=== PATIENT | female | born 1980 | race Caucasian/White ===

== ENCOUNTER → 2021-08-05 | Outpatient (CLI) | payer OTHER | END | disposition home or self-care (01) | LOC: RADMAMWWP 07:23 | PROVIDERS: ATTEND Obstetrics & Gynecology | DX: Z12.31 Encounter for screening mammogram for malignant neoplasm of breast (principal); Z80.3 Family history of malignant neoplasm of breast | CPT/HCPCS: 77063; 77067 ==

== ENCOUNTER → 2021-08-23 | Outpatient (CLI) | payer BC ==
[2021-08-23 14:22] LABS: Basophils # (A) 0.01 X 10*3/uL (0.00-0.10); Basophils % (A) 0.3 %; Eosinophils # (A) 0.04 X 10*3/uL (0.04-0.35); HCT 38.8 % (37.2-46.3); HGB 12.4 g/dL (12.0-15.0); Immature Grans, Automated 0.3 %; Lymphocytes # (A) 0.66 X 10*3/uL (0.90-5.00); Lymphocytes % (A) 17.1 %; MCH 30.4 pg (27.0-32.0); MCV 95.1 fL (80.0-97.0); Mean Platelet Volume 12.3 fL (9.5-12.2); Monocytes # (A) 0.34 X 10*3/uL (0.20-1.00); Monocytes % (A) 8.8 %; NRBC Per 100 WBC 0 /100 WBCS (0.0-0.0); Neutrophils # (A) 2.79 X 10*3/uL (1.80-7.70); Neutrophils % (A) 72.5 %; Platelet Count 171 X 10*3/uL (140-440); RBC 4.08 X 10*6/uL (4.10-5.20); RDW 13.8 % (11.5-14.5); WBC 3.85 X 10*3/uL (4.50-10.00)
[2021-08-23 15:07] LABS: African American GFR (CKD) 124.3 (60.0-200.0); Anion Gap 9.9 mmol/L (10.00-18.00); Blood Urea Nitrogen 8.9 mg/dL (9.0-27.0); Carbon Dioxide 24.3 mmol/L (20.0-27.5); Non-African American GFR(CKD) 107.3 (60.0-200.0)
== END | disposition home or self-care (01) ==
LOC: LABPAT 09:57
PROVIDERS: ATTEND Obstetrics & Gynecology Obstetrics
DX: Z01.812 Encounter for preprocedural laboratory examination (principal); Z15.09 Genetic susceptibility to other malignant neoplasm
CPT/HCPCS: 80051; 82565; 82947; 84520; 85025; 87086

== ENCOUNTER 2021-08-30 06:18 | Day surgery (SDC) | payer BC, OTHER ==
[~2021-08-30 06:18] MED LIST: ACETAMINOPHEN IV (For NPO) 1,000 MG in EMPTY BAG 1 BAG IVPB PRN
[2021-08-30] MEDS ORDERED: LACTATED RINGERS 1,000 ML IV ONE (07:00)
[2021-08-30] MEDS ORDERED: LIDOCAINE 1% (10MG/ML) FOR IV START INTRADERMA ONE (07:00)
[2021-08-30] MEDS ORDERED: ONDANSETRON 4 MG/2 ML VIAL ONE (07:15)
[2021-08-30] MEDS ORDERED: SCOPOLAMINE 1 MG/72 HR PATCH TRANSDERM ONE (07:15)
[2021-08-30] MEDS ORDERED: MIDAZOLAM 2 MG/2 ML VIAL IV ONE (07:20)
[2021-08-30] MEDS ORDERED: fentaNYL (PF) 50 MCG/ML 2 ML AMP IV ONE (07:20)
[2021-08-30] MEDS ORDERED: DEXAMETHASONE SOD PHOSPHATE 4 MG/ML 1 ML VIAL IV ONE (07:30)
--- NOTE | 2021-08-30 07:36 | P.ANPRN ---
Procedure Note - Anesthesia - Epidural/Spinal Spinal Time Out Performed: Yes Date of Procedure: 08/30/21 Procedure Start Time: Procedure Stop Time: Location of Patient: PreOp Indication: Requested by Surgeon Sedation Type: Sedate with meaningful contact maintained Preparation: Sterile Prep Position: Sitting Needle Guage: 25 Injectate: Other (fentanyle 25 mcg + duramorph 300 mcg) Blood Aspirated: No Pain Paresthesia on Injection Noted: No Events: Uneventful and Well Tolerated
[2021-08-30] MEDS ORDERED: diphenhydrAMINE 50 MG/ML 1 ML VIAL IVP PRN (08:01)
[2021-08-30] MEDS ORDERED: HYDROmorphone 0.5 MG/0.5 ML SYRINGE IVP PRN (08:01)
[2021-08-30] MEDS ORDERED: KETOROLAC 15 MG/ML 1 ML VIAL IVP PRN (08:01)
[2021-08-30] MEDS ORDERED: NALOXONE 0.4 MG/ML 1 ML VIAL IV PRN (08:01)
[2021-08-30] MEDS ORDERED: MIDAZOLAM 2 MG/2 ML VIAL ONE (08:21)
[2021-08-30] MEDS ORDERED: BUPIVACAINE (PF) 0.25% 30 ML VIAL SQ ONE ×2 (08:21→09:43)
[2021-08-30] MEDS ORDERED: fentaNYL (PF) 50 MCG/ML 2 ML AMP ONE (08:21)
[2021-08-30] MEDS ORDERED: MORPHINE SULFATE (PF) 0.3 MG/0.3 ML SYR ONE (08:21)
[2021-08-30] MEDS ORDERED: SUCCINYLCHOLINE CHLORIDE 200 MG/10 ML VIAL IV ONE (08:21)
[2021-08-30] MEDS ORDERED: diphenhydrAMINE 50 MG/ML 1 ML VIAL ONE (08:21)
[2021-08-30] MEDS ORDERED: NEOSTIGMINE 1 MG/ML 10 ML VIAL ONE (08:21)
[2021-08-30] MEDS ORDERED: ROCURONIUM 10 MG/ML (5 ML VIAL) IV ONE (08:21)
[2021-08-30] MEDS ORDERED: PROPOFOL 10 MG/ML 20 ML VIAL IV ONE (08:21)
[2021-08-30] MEDS ORDERED: GLYCOPYRROLATE 0.2 MG/ML 2 ML VIAL ONE (08:21)
[2021-08-30] MEDS ORDERED: PHENYLEPHRINE-0.9% NACL SYG 1,000 MCG/10 ML SYRINGE ONE (08:21)
[2021-08-30] MEDS ORDERED: LIDOCAINE 2% INJ 20 MG/ML (2 ML VIAL) ONE (08:21)
[2021-08-30] MEDS ORDERED: ONDANSETRON 4 MG/2 ML VIAL IVP PRN (09:55)
[2021-08-30] MEDS ORDERED: Acetaminophen-Codeine 300-30mg TAB PO PRN ×2 (09:55)
[2021-08-30] MEDS ORDERED: IBUPROFEN 600 MG TAB PO PRN (09:55)
[2021-08-30] MEDS ORDERED: IBUPROFEN IV 800 MG in SODIUM CHLORIDE 0.9% 250 ML IV ONE (10:30)
--- NOTE | 2021-08-30 10:30 | P.OP ---
Date of Procedure: 08/30/21 Preoperative Diagnosis: BRCA 2 positive Postoperative Diagnosis: Same plus endometriosis Procedure(s) Performed: Robotic-assisted vaginal hysterotomy with bilateral salpingo-oophorectomy, diagnostic cystoscopy Anesthesia: ADITI Surgeon: Leigh Ann Garzon Emergency Medical Technician/Driver #1: Blossom Harris Estimated Blood Loss (ml): 15 IV fluids (ml): 400 Urine output (ml): 200 Pathology: other (Uterus fallopian tubes ovaries) Condition: stable Disposition: PACU Indications for Procedure: 41-year-old female 2 para 2 with known BRCA2 positive gene mutation. Patient desires risk reducing surgery given gene mutation. Operative Findings: Normal uterus tubes and ovaries were appreciated. In the posterior cul-de-sac endometrial implants were noted consistent with a diagnosis of endometriosis Description of Procedure: Patient was taken back to the operating suite where general anesthesia was obtained without difficulty by the anesthesia department. She was prepped and draped in the normal sterile fashion in the dorsal lithotomy position. A Hatfield catheter was placed under sterile technique. Weighted speculum was placed in the posterior vaginal vault the anterior lip of the cervix was visualized and grasped with a single-tooth tenaculum. The endocervical canal was then dilated and a PivotDesk uterine manipulator was advanced into the uterus as a means to manipulate the uterus throughout the procedure. The balloon was insufflated with air and the cervical cap was placed snugly against the cervix. At this time all instruments were removed from the patient's vaginal vault. Attention was then turned to the patient's abdomen where a proximally 2 finger breaths above the umbilicus a small skin incision is made. Through this skin incision the Veress needle is placed. Once the Veress needle was deemed to be in the appropriate position with a drop of CO2 pressure CO2 insufflation was allowed to occur. At this time an 8 mm trocar with the laparoscope in place was placed through the skin incision and toward the pneumoperitoneum. The above-noted findings were visualized. At this time the additional port sites are placed these are 8 mm ports and placed under direct visualization. These sites are placed 10 cm lateral and 370 m inferior to midline port. These trochars are placed under direct visualization. In the left upper quadrant a 12 mm skin incision is made, a 12 mm trocar and sleeve is placed under direct visualization. At this time the da Billy robot was docked in the usual fashion. In the right operative arm the monopolar scissors is placed in the left operative arm the bipolar forceps is placed. Attention was then turned to the patient's left infundibulopelvic ligament which was grasped coagulated distally and proximal plane divided. This continued through the broad and toward the round which is coagulated distally and proximal plane divided. The bladder flap from the left was then created using sharp and blunt dissection. The ascending branch the uterine artery was visualized coagulated and transected. Hemostasis was appreciated. Attention was then turned the patient's right infundibulopelvic ligament which was visualized coagulated distally and proximally and divided. This continued through the broad and toward the round which was coagulated distally and proximally and divided. The bladder flap from the right was then created using sharp and blunt dissection. A Ray-Cabrera was then placed into the abdomen and the bladder was then bluntly dissected further away from the operating field. Ray-Cabrera was then removed. The ascending branch the uterine artery from the right was then visualized coagulated distally and proximally and divided. At this time the only remaining attachment was a vaginal attachment therefore a colpotomy incision was made in a circumferential fashion. The uterus bilateral fallopian tubes and ovaries were delivered through the opening. The pelvis then irrigated hemostasis was appreciated and the vaginal cuff. The vaginal cuff was then closed with multiple [id number] sutures of 0 Vicryl. Once again hemostasis was appreciated. All instruments were then removed from the patient's abdomen and the da Billy robot was undocked in the usual fashion. At this time attention was turned to the patient's Hatfield catheter which was removed without difficulty, and a cyst oscopy was performed. Cystoscope was placed through the urethra and toward the bladder bladder bubble was appreciated both ureteral orifices were noted to be spilling clear yellow urine. A complete survey of the bladder revealed an intact cavity. The cystoscope was removed without difficulty. The Hatfield catheter was replaced. At this time attention was then turned the patient's abdomen where the skin incisions were closed with 4-0 Vicryl in a subcuticular fashion. Steri-Strips and sterile dressings were applied lidocaine was injected into incision sites. All counts were noted to be correct 2 at the end of the procedure, patient tolerated procedure well and was taken the recovery room awake in stable condition.
[2021-08-30] MEDS ORDERED: ONDANSETRON 4 MG/2 ML VIAL IVP ONE (11:01)
[2021-08-30] MEDS ORDERED: METOCLOPRAMIDE 5 MG/ML 2 ML VIAL IVP PRN (14:18)
[2021-08-30] MEDS ORDERED: SENNOSIDES-DOCUSATE SODIUM 1 EACH TAB PO SCH (21:00)
[2021-08-31 06:42] LABS: Basophils % (A) 1 %; Eosinophils % (A) 0 %; HCT 37.7 % (34.0-46.0); HGB 12.6 gm/dL (11.4-16.0); Lymphocytes # (A) 0.8 k/uL (1.0-4.8); Lymphocytes % (A) 9 %; MCH 31.6 pg (25.0-35.0); MCHC 33.4 g/dL (31.0-37.0); MCV 94.5 fL (80.0-100.0); Mean Platelet Volume 8.5; Monocytes # (A) 0.5 k/uL (0-1.0); Monocytes % (A) 6 %; Neutrophils # (A) 7.1 k/uL (1.3-7.7); Neutrophils % (A) 83 %; Platelet Count 190 k/uL (150-450); RBC 3.99 m/uL (3.80-5.40); RDW 13.1 % (11.5-15.5); WBC 8.6 k/uL (3.8-10.6)
--- NOTE | 2021-08-31 07:45 | P.PN ---
Progress Note - Text Progress Note Date: 08/31/21 Postop day 1 from hysterectomy with intrathecal morphine given for postop pain management. Patient is doing well. Pain is well controlled. On visual analog scale Mild itching present No nausea or vomiting reported. No Headache or weakness and numbness in the legs. No complications from spinal morphine.
[2021-08-31 07:49] VITALS: BP 104/63; PULSE 84; TEMP 98.5
[2021-08-31 08:48] VITALS: RESP 16
--- NOTE | 2021-08-31 09:05 | P.DS ---
Providers Date of admission: 08/30/2021 Expected date of discharge: 08/31/21 Attending physician: Leigh Ann Garzon Primary care physician: [place] Ryan - Discharge Diagnosis(es) (1) BRCA gene mutation positive Current Visit: Yes Status: Acute Hospital Course: This is a 41-year-old that presented to [facility] yesterday for scheduled robotic cyst vaginal hysterotomy with bilateral sopping oophorectomy, patient is a known history of BRCA2 mutation and desires definitive risk reducing surgery. Patient was counseled on surgery prior to presentation to the hospital and wished to proceed. Patient was taken back to the operating suite where hysterectomy was performed without difficulty. For full details on the procedure please see the operative report. Patient's postoperative course has been uneventful. On this postoperative day #1 she is ambulating and voiding without difficulty. She is tolerating regular diet without nausea or vomiting. She states her pain is well-controlled with oral ibuprofen. She denies concerns. She denies vaginal bleeding. She would like discharge home. Patient Condition at Discharge: Good Plan - Discharge Summary Discharge Rx Participant: Yes New Discharge Prescriptions: No Action norgestimate-ethinyl estradioL [Ortho Tri-Cyclen 28 Tablet] 1 tab PO DAILY Levocetirizine Dihydrochloride [Xyzal] 5 mg PO DAILY Montelukast [Singulair] 10 mg PO DAILY valACYclovir HCL [Valtrex] 500 mg PO DAILY PRN PRN Reason: HERPES OUTBREAK Azelastine HCl [Astepro] 1 spray NASAL DAILY Discharge Medication List Azelastine HCl [Astepro] 1 spray NASAL DAILY 08/26/21 [History] Levocetirizine Dihydrochloride [Xyzal] 5 mg PO DAILY 08/26/21 [History] Montelukast [Singulair] 10 mg PO DAILY 08/26/21 [History] norgestimate-ethinyl estradioL [Ortho Tri-Cyclen 28 Tablet] 1 tab PO DAILY 08/26/21 [History] valACYclovir HCL [Valtrex] 500 mg PO DAILY PRN 08/26/21 [History] Follow up Appointment(s)/Referral(s): Leigh Ann Garzon DO [Doctor of Osteopathic Medicine] - 2 Weeks Patient Instructions/Handouts: *Surgery [facility] - Scopalamine Patch Instructions, Laparoscopic Hysterectomy (GEN), Laparoscopic Hysterectomy (DC) Discharge Disposition: HOME SELF-CARE
== END 2021-08-31 09:30 | disposition home or self-care (01) ==
LOC: OR 06:18 → 4FBP 09:44 → OR 08-31 09:30
PROVIDERS: ATTEND Obstetrics & Gynecology Obstetrics
DX: D25.2 Subserosal leiomyoma of uterus (principal); Z15.09 Genetic susceptibility to other malignant neoplasm; Z15.02 Genetic susceptibility to malignant neoplasm of ovary; J30.2 Other seasonal allergic rhinitis; Z79.899 Other long term (current) drug therapy; Z88.2 Allergy status to sulfonamides; Z98.891 History of uterine scar from previous surgery; Z90.49 Acquired absence of other specified parts of digestive tract; Z80.49 Family history of malignant neoplasm of other genital organs; Z80.3 Family history of malignant neoplasm of breast; Z82.49 Family history of ischemic heart disease and other diseases of the circulatory system
CPT/HCPCS: 58571; S2900; 81025; 85025; 86850; 86900; 86901; 88307

== ENCOUNTER → 2022-12-20 | Outpatient (CLI) | payer BC ==
--- NOTE | 2022-12-21 18:35 | MM ---
Reason for Exam: Screening (asymptomatic). Last mammogram was performed 1 year(s) and 5 month(s) ago. Patient History: Menarche at age 14. First Full-Term at age 28. Left ovary removed at age 42. Right ovary removed at age 42. Hysterectomy at age 42. Postmenopausal. Patient tested for BRCA2 outcome was positive. Maternal grandmother had ovarian cancer. Prior Study Comparison: 08/01/2013 Bilateral MG 3D screening mammo w/cad, [facility]. 11/15/2014 Bilateral MG 3D screening mammo w/cad, [facility]. 12/02/2014 Left MG work up mamm w CAD LT - 2, [facility]. 08/05/2021 Bilateral MG 3D screening mammo w/cad, [facility]. Tissue Density: There are scattered fibroglandular densities. Findings: Analyzed By CAD. Pattern appears symmetrical and stable. No significant interval change is evident. No suspicious groups of microcalcifications, spiculated or lobular masses, architectural distortion or other secondary signs of malignancy are mammographically apparent. Overall Assessment: Negative, BI-RAD 1 Management: Screening Mammogram of both breasts in 1 year. A negative mammogram report should not preclude additional follow up of suspicious palpable abnormalities. Patient should continue monthly self breast exam. A clinical breast exam by your physician is recommended on an annual basis and results should be correlated with mammographic findings. Electronically signed and approved by: Steve Moss D.O. Radiologis
== END | disposition home or self-care (01) ==
LOC: RADMAMWWP 07:24
PROVIDERS: ATTEND Obstetrics & Gynecology Obstetrics
DX: Z12.31 Encounter for screening mammogram for malignant neoplasm of breast (principal); Z78.0 Asymptomatic menopausal state
CPT/HCPCS: 77063; 77067